=== PATIENT | female | born 1985 | race Caucasian/White ===

== ENCOUNTER 2017-03-06 08:01 | Inpatient (IN) | payer OTHER ==
[2017-03-06] VITALS (21 sets, daily range): BP systolic 102–120; BP diastolic 51–71
[~2017-03-06] VITALS: Ht 162.6 cm; Wt 87.1 kg
[2017-03-06] MEDS ORDERED: PRENTAB9 PO (08:16)
[2017-03-06] MEDS ORDERED: LACTATED RINGER'S 1000 ML IV STA (09:34)
[2017-03-06] MEDS ORDERED: miSOPROStol 25 MCG 1/4 TAB (S0191) As Ordered ONE (09:40)
[2017-03-06 09:58] LABS: MEAN CORPUSCULAR HEMOGLOBIN 29.2 pg (27.0-33.0); MEAN CORPUSCULAR HGB CONC 33.9 g/dl (32.0-36.5); MEAN CORPUSCULAR VOLUME 86.1 fl (80.0-96.0); RED CELL DISTRIBUTION WIDTH 13.2 % (11.5-14.5); WHITE BLOOD COUNT 7.5 10^3/uL (4.0-10.0)
--- NOTE | 2017-03-06 10:05 | HPEPDOC ---
Obstetrical History & Physical General Date of Admission Mar 06, 2017 at 08:01 History of Present Illness Beth is a 31yo with SIUP at 41w0d presenting to L&D for iol secondary to late term gestation. Occasional ctx, no loss of fluid, no vaginal bleeding, good movement. Feels well. Chief Complaint: Induction of labor Information Provided By: Patient Care Care: Good Care Dating Final EDC: Feb 27, 2017 Final EDC by: 1st trimester (US) Antepartum Course Diagnos(e)s Benign course Height (inches): 64 Pre- weight (lbs.): 165 Admission Weight (lbs.): 194 Change in Weight (lbs.): 29 Past Medical History Past Obstetrical History : Past Obstetrical History: [employer] History: Endometriosis Past Medical History Medical History Benign Surgical History: Diagnostic laparoscopy Family History Significant Family History: No pertinent family hx Social History Marital Status: Family situation: Spouse/partner home Psychosocial History: No pertinent psych hx * Smoker: non-smoker Alcohol: Denies Drugs: denies Imunizations Tdap status: current Influenza Status: current Allergies Coded Allergies: No Known Allergies (Unverified , 03/06/17) Medications Scheduled Multivitamins/ ( 27-0.8 mg) 1 Tab Tab, 1 TAB PO DAILY Physical Examination Physical Examination GENERAL: Alert and oriented times three. BREAST: . ABDOMEN: Gravid and non-tender to touch. FETUS: Is vertex (VTX) by TAUS at bedside HEART RATE: Regular rate and rhythm. LUNGS: Clear to auscultation (CTA). EXTREMITIES: No edema. Vital Signs/I&O Vital Signs Date Time Temp Pulse Resp B/P (MAP) Pulse Ox O2 Delivery O2 Flow Rate FiO2 03/06/17 08:20 98.3 86 18 117/71 (86) Laboratory Data 24H LABS Laboratory Tests 2 03/06/17 08:20: Pertinent Laboratoy Data Blood Type: A+ RBC Antibody Screen: Negative HIV: Negative Hepatitis B: Negative Hepatitis C: Unknown Rapid Plasma Reagin: Nonreactive Rubella: Immune Varicella: Immune Chlamydia/Gonorrhea: Negative Group B Streptococcus: Negative Glucose Tolerance Test: 137 (3hr GTT 76/116/101/112) Anatomy Ultrasound Ultrasound Date: October 14, 2016 Placenta Location: Posterior Normal Anatomy: Yes Placenta Previa: No Steroid Therapy Steroid Therapy: No Vaginal Examination Dilation: 1cm Effacement: 0-30% Station: -3 Cervical Consistency: Medium Cervical Position: Posterior Presentation: Cephalic presentation Assessment Variability: Moderate Accelerations: Positive Decelerations: None Tocometer Contractions: Yes Frequency: irregular Duration: less than 60 seconds Strength: palpated as mild Assessment/Plan Assessment Beth is a 31yo with SIUP at 41w0d presenting to L&D for iol secondary to late term gestation. Cephalic by TAUS. Cervix 1/thick/-3. Cat I FHRT with irregular ctx. GBS negative. PMhx: endometriosis by laparoscopy course benign Plan Admit and orient. Counseled and consented for iol Diet: clear liquids Group B Streptococcus (GBS) negative Labs and intravenous (IV) per unit protocol. Counseled on cytotec, monahan bulb, Pitocin monahan bulb placed as well as 25mcg cytotec vaginally, will recheck in 4 hours and re-dose as appropriate Lactated Ringers (LR): Bolus 1000 mL, then at 125 mL/hr. Anticipate normal spontaneous delivery () C-S as appropriate. Dr. Christiano Javier ([facility]) CHRISTIANO JAVIER MD Mar 06, 2017 10:05
[2017-03-06 10:09] LABS: METHADONE URINE NEGATIVE (NEGATIVE)
[2017-03-06] MEDS ORDERED: miSOPROStol 25 MCG 1/4 TAB (S0191) PV ONE (10:15)
--- NOTE | 2017-03-06 17:26 | IPNPDOC ---
Text Note Date of Service The patient was seen on 03/06/17. NOTE Patient doing well, feeling cramping sensation with contractions now. ROM occurred earlier through monahan bulb, appears clear now. Fetus had a decel in heart rate twice today, both times after pt ambulated to the bathroom and returned, so monahan catheter now in place and patient no longer ambulating. Otherwise, Cat I FHRT. Currently having consistent ctx q3-5min. Monahan bulb still in place. Cannot re-dose cytotec since ctx are too frequent. Will start low dose pitocin, not to exceed 6mu while monahan bulb is in place, then will titrate per protocol. Safe to proceed. Dr. Christiano Javier ([facility]), VS,Pepe, I+O VS, Pepe I+O Laboratory Tests 03/06/17 08:20 Red Blood Count 4.18, Mean Corpuscular Volume 86.1, Mean Corpuscular Hemoglobin 29.2, Mean Corpuscular Hemoglobin Concent 33.9, Red Cell Distribution Width 13.2 Vital Signs Date Time Temp Pulse Resp B/P (MAP) Pulse Ox O2 Delivery O2 Flow Rate FiO2 03/06/17 15:36 74 107/58 (74) 03/06/17 09:45 98.2 03/06/17 08:20 18 I&O- Last 24 Hours up to 6 AM 03/07/17 06:00 Intake Total 1000 ml Output Total 750 ml Balance 250 ml CHRISTIANO JAVIER MD Mar 06, 2017 17:26
[2017-03-06] MEDS ORDERED: OXYTOCIN DRIP 30 UNITS in APPROPRIATE DILUENT 1 EA IV SCH (17:30)
[2017-03-06] MEDS ORDERED: LR 1,000 ML IV SCH (17:45)
--- NOTE | 2017-03-06 20:13 | IPNPDOC ---
Text Note Date of Service The patient was seen on 03/06/17. NOTE Tracing reviewed per RN request. Patient had two deep variable decelerations that recovered well with repositioning/O2/turning pitocin down to 2mu. Otherwise tracing has been Cat I. Monahan bulb still in place. Will continue pitocin at level that is tolerated by FHRT, up to 6mu while monahan bulb is in place. Once monahan bulb falls out, can titrate pitocin up per protocol. Dr. Christiano Javier ([facility])MD VS,Pepe, I+O VSPepe I+O Laboratory Tests 03/06/17 08:20 Red Blood Count 4.18, Mean Corpuscular Volume 86.1, Mean Corpuscular Hemoglobin 29.2, Mean Corpuscular Hemoglobin Concent 33.9, Red Cell Distribution Width 13.2 Vital Signs Date Time Temp Pulse Resp B/P (MAP) Pulse Ox O2 Delivery O2 Flow Rate FiO2 03/06/17 19:02 72 115/64 (81) 03/06/17 18:32 18 03/06/17 17:38 98.8 I&O- Last 24 Hours up to 6 AM 03/07/17 06:00 Intake Total 1000 ml Output Total 1600 ml Balance -600 ml CHRISTIANO JAVIER MD Mar 06, 2017 20:13
--- NOTE | 2017-03-06 22:31 | IPNPDOC ---
Text Note Date of Service The patient was seen on 03/06/17. NOTE Came to room after RN reported spontaneous FHR decelerations Patient still not uncomfortable with contractions. FHR still overall Cat I for long period of time until spontaneous decel to 60's that recovers with O2 and position changes. Quinn bulb taken down. SCE 3-4/50/-2. IUPC placed for possibility of amnioinfusion if another decel occurs and to better track ctx MVUs. Will continue to closely monitor. Informed patient if we cannot go up on pitocin for intolerance, we may need to perform at later point. She is understanding of this. Will titrate up on pitocin per protocol as tolerated. Dr. Christiano Javier ([facility]) VS,Pepe, I+O VS, Pepe, I+O Laboratory Tests 03/06/17 08:20 Red Blood Count 4.18, Mean Corpuscular Volume 86.1, Mean Corpuscular Hemoglobin 29.2, Mean Corpuscular Hemoglobin Concent 33.9, Red Cell Distribution Width 13.2 Vital Signs Date Time Temp Pulse Resp B/P (MAP) Pulse Ox O2 Delivery O2 Flow Rate FiO2 03/06/17 21:03 66 107/58 (74) 03/06/17 19:00 96.7 16 I&O- Last 24 Hours up to 6 AM 03/07/17 06:00 Intake Total 1000 ml Output Total 1600 ml Balance -600 ml CHRISTIANO JAVIER MD Mar 06, 2017 22:31
[2017-03-07] VITALS (33 sets, daily range): BP systolic 89–154; BP diastolic 50–79
[2017-03-07] MEDS ORDERED: BUTORPHANOL 2 MG/ML INJ (J0595) IV ONE
--- NOTE | 2017-03-07 03:27 | IPNPDOC ---
Text Note Date of Service The patient was seen on 03/07/17. NOTE Patient had a dose of stadol around midnight that helped, now desiring epidural as she is quite uncomfortable. Vitals wnl Amnioinfusion seems to have corrected the variable decelerations that were present 3 hours ago, as the FHRT has been Cat I since with regular ctx SCE 5//-2, soft Will proceed with epidural and continue to titrate pitocin per protocol. Dr. Christiano Javier ([facility]), VS,Pepe, I+O VS, Pepe I+O Laboratory Tests 03/06/17 08:20 Red Blood Count 4.18, Mean Corpuscular Volume 86.1, Mean Corpuscular Hemoglobin 29.2, Mean Corpuscular Hemoglobin Concent 33.9, Red Cell Distribution Width 13.2 Vital Signs Date Time Temp Pulse Resp B/P (MAP) Pulse Ox O2 Delivery O2 Flow Rate FiO2 03/07/17 02:03 49 102/57 (72) 03/07/17 00:21 18 03/06/17 22:00 97.6 CHRISTIANO JAVIER MD Mar 07, 2017 03:27
[2017-03-07] MEDS ORDERED: FENTANYL 2MCG/ML ROPIVACAINE 0.2% IN 0.9% NACL 200ML IVBAG As Ordered ONE (03:41)
[2017-03-07] MEDS ORDERED: NALOXONE INJ 0.4 MG/1 ML VIAL (J2310) IV PRN (04:45)
[2017-03-07] MEDS ORDERED: ePHEDrine SULFATE 25 MG/5 ML(5MG/ML) SYRINGE IV PRN (04:45)
[2017-03-07] MEDS ORDERED: EPIDURAL/PCA KEYS XX PRN (04:45)
[2017-03-07] MEDS ORDERED: REFRIGERATOR IV KEYS XX PRN (04:45)
[2017-03-07] MEDS ORDERED: FENTANYL/ROPIVACAINE/NACL BAG 200 ML EPIDURAL SCH (04:45)
[2017-03-07] MEDS ORDERED: diphenhydrAMINE INJ 50MG/ML VIAL (J1200) IV PRN (04:45)
[2017-03-07] MEDS ORDERED: ONDANSETRON 4MG/2ML VIAL (J2405) IV PRN (04:45)
[2017-03-07] MEDS ORDERED: EPIDURAL COMMENT XX SCH (04:45)
--- NOTE | 2017-03-07 06:58 | IPNPDOC ---
Text Note Date of Service The patient was seen on 03/07/17. NOTE Patient now comfortable after another bolus of epidural. Was having some low bp's and corresponding FHR decelerations that were corrected with fluid bolus. SCE C/C/+1, deep FHR decelerations were occurring with first pushing efforts but after starting to push left lateral, FHR decelerations stopped Will continue to push on left side, anticipate Christiano Javier ([facility]) VS,Pepe, I+O VS, Pepe, I+O Laboratory Tests 03/06/17 08:20 Red Blood Count 4.18, Mean Corpuscular Volume 86.1, Mean Corpuscular Hemoglobin 29.2, Mean Corpuscular Hemoglobin Concent 33.9, Red Cell Distribution Width 13.2 Vital Signs Date Time Temp Pulse Resp B/P (MAP) Pulse Ox O2 Delivery O2 Flow Rate FiO2 03/07/17 06:20 49 93/55 (68) 03/07/17 02:00 97.3 03/07/17 00:21 18 CHRISTIANO JAVIER MD Mar 07, 2017 06:58
[2017-03-07] MEDS ORDERED: OXYTOCIN DRIP 30 UNITS in APPROPRIATE DILUENT 1 EA IV SCH (08:50)
[2017-03-07] MEDS ORDERED: RHOGAM 300 MCG (1500 IU) INJ (J2790) IM SCH (09:00)
[2017-03-07] MEDS ORDERED: DIBUCAINE 1% OINTMENT 30GM TOP PRN (09:00)
[2017-03-07] MEDS ORDERED: MEASLES,MUMPS,RUBELLA VACCINE INJ (MMR-II) (90707) SC SCH (09:00)
[2017-03-07] MEDS ORDERED: ACETAMINOPHEN 500 MG TAB PO PRN (09:00)
--- NOTE | 2017-03-07 09:05 | DNPDOC ---
[facility] Delivery Note Delivery Note DATE OF DELIVERY: 07 March 2017 PREDELIVERY DIAGNOSIS: induction of labor for late term gestation POST DELIVERY DIAGNOSIS: Delivered. PROCEDURE: Spontaneous vaginal delivery FI[employer] P[employer] LIN[employer] SUPERVISOR: Dr. Christiano Javier MD ANESTHESIA: epidural ESTIMATED BLOOD LOSS: 250 mL. FINDINGS: 7 pound 14 ounce female , Score 9/9, no nuchal cord DELIVERY SUMMARY: Beth is a 31yo [id number] s/p uncomplicated of viable female at 0810 on 07 March 2017 after undergoing uncomplicated induction of labor for late term gestation. Patient began to push at C/C/+1 with good epidural anesthesia. Infant's head presented OA, restituted SINTIA and anterior shoulder delivered followed by posterior shoulder and corpus. Good cry, vigorous infant placed on maternal chest. 1 minute delayed cord clamping, then cord clamped twice and cut by father of the baby. Uterine massage performed and placenta delivered intact spontaneously with 3 vessel cord. Terminal meconium noted. Small 1mll and right labial laceration noted and repaired in routine fashion with 3-0 vicryl suture. EBL 250ml. Infant and mother doing well. CHRISTIANO JAVIER MD Mar 07, 2017 09:05
[2017-03-07] MEDS: IBUPROFEN 800 MG TAB PO PRN ×2 (09:28→20:12)
[2017-03-07] MEDS: DOCUSATE SODIUM 100 MG CAP PO SCH ×2 (09:30→20:12)
[2017-03-08 06:45] VITALS: BP 111/59
[2017-03-08] MEDS: IBUPROFEN 800 MG TAB PO PRN ×2 (06:51→17:45)
[2017-03-08] MEDS: PRENATAL VITAMINS CHEWABLE TABLET PO SCH (09:00)
[2017-03-08] MEDS: DOCUSATE SODIUM 100 MG CAP PO SCH ×2 (09:00→20:23)
--- NOTE | 2017-03-08 09:56 | IPNPDOC ---
Progress Note Date of Service The patient was seen on 03/08/17 at 09:49. Progress Note [id number] @ 0950 31 yo G1 now P1001 /p on [id number] @ 0818 on PPD #1 doing well. Denies concerns at this time. SUBJECTIVE: Reports she is comfortable Bleeding moderate, breast-feeding, ambulating without difficulty, desires minipill for control. Voiding without difficulty OBJECTIVE: PHYSICAL EXAMINATION: VITAL SIGNS: Please see below. CARDIOVASCULAR: RRR, no m/r/g LUNGS: CTA BREAST EXAMINATION: no engorgement or erythema/non-tender FUNDUS: Firm at U, nontenderto massage. PERINEUM: Maribeth EXTREMITIES: Bilateral lower extremities, no edema, no erythema ASSESSMENT: 31year-old status post vaginal delivery with 1MLL and R labial lac. Doing well, day #1. PLAN: -Continue routine PP care -Discharge or plans for: [id number] -Return for fever, pain or bleeding. - control plans: minipill -Followup plans: 6-week PP visit at [facility]. VS, I&O, 24H, Fishbone Vital Signs/I&O Vital Signs Date Time Temp Pulse Resp B/P (MAP) Pulse Ox O2 Delivery O2 Flow Rate FiO2 03/08/17 06:45 97.5 76 18 111/59 (76) KAMRAN PATEL CNM Mar 08, 2017 09:56
[2017-03-08 18:00] VITALS: BP 120/68
[2017-03-09 06:00] VITALS: BP 115/58
[2017-03-09] MEDS: IBUPROFEN 800 MG TAB PO PRN (07:34)
[2017-03-09] MEDS: PRENATAL VITAMINS CHEWABLE TABLET PO SCH (07:34)
[2017-03-09] MEDS: DOCUSATE SODIUM 100 MG CAP PO SCH (07:34)
--- NOTE | 2017-03-09 08:38 | DS.PDOC ---
Discharge Summary General Date of Admission Mar 06, 2017 at 08:01 Date of Discharge [id number] Discharge Summary PROCEDURES PERFORMED DURING STAY: spontaneous vaginal delivery ADMITTING DIAGNOSIS: 1. Induction of labor, postdates DISCHARGE DIAGNOSES: 1. Healthy female HOSPITAL COURSE: Admitted for induction on labor and delivery. Uncomplicated, see delivery note. DISCHARGE MEDICATIONS: Motrin, Lanolin Physical exam: see note from this morning LABORATORY DATA: Please see below. ACTIVITY: as tolerated. Nothing in vagina for 6 weeks. DIET: regular DISPOSITION:stable TIME SPENT ON DISCHARGE: Greater than 15 minutes. Sessions Vital Signs/I&Os Vital Signs Date Time Temp Pulse Resp B/P (MAP) Pulse Ox O2 Delivery O2 Flow Rate FiO2 03/09/17 06:00 98.0 71 18 115/58 (77) Discharge Medications Scheduled Multivitamins/ ( 27-0.8 mg) 1 Tab Tab, 1 TAB PO DAILY, (Reported ) Allergies Coded Allergies: No Known Allergies (Unverified , 03/06/17) SESSIONS,RAJ Iniguez MD Mar 09, 2017 08:38
--- NOTE | 2017-03-09 08:39 | IPNPDOC ---
Text Note Date of Service The patient was seen on 03/09/17. NOTE PPD2 prog note States feeling well, no complaints. No heavy VB. Pain controlled. Voiding, ambulatory. Bonding well. Breast feeding. VSSAF CTAB RRR Ut at U-2, firm Ext no CCE a/p: Doing well. d/c this morning. To bonding if baby not released. Sessions VS,Pepe, I+O VSPepe, I+O Vital Signs Date Time Temp Pulse Resp B/P (MAP) Pulse Ox O2 Delivery O2 Flow Rate FiO2 03/09/17 06:00 98.0 71 18 115/58 (77) SESSIONS,RAJ Iniguez MD Mar 09, 2017 08:39
[2017-03-09] MEDS ORDERED: ACET50TA PO (09:30)
[2017-03-09] MEDS ORDERED: IBUP-1114 PO (09:30)
[2017-03-09] MEDS ORDERED: INFLUENZA QUADRIVALENT PF VACCINE 0.5ML SYRINGE (90686) IM ONE (12:00)
== END 2017-03-09 13:15 | disposition home or self-care (01) | DRG 775 ==
LOC: M LDI 08:01 → M OBS 03-07 10:11
PROVIDERS: ADMIT Obstetrics & Gynecology; ATTEND Obstetrics & Gynecology
PROC: 3E0P7GC Introduction of Other Therapeutic Substance into Female Reproductive, Via Natural or Artificial Opening (ICD-10-PCS; 2017-03-06)
PROC: 10E0XZZ Delivery of Products of Conception, External Approach (ICD-10-PCS; principal; 2017-03-07)
PROC: 0HQ9XZZ Repair Perineum Skin, External Approach (ICD-10-PCS; 2017-03-07)
DX: O48.0 Post-term pregnancy (principal); Z37.0 Single live birth; Z3A.41 41 weeks gestation of pregnancy; Z79.899 Other long term (current) drug therapy; O70.0 First degree perineal laceration during delivery